=== PATIENT | female | born 1980 | race Caucasian/White ===

== ENCOUNTER → 2017-04-12 | Outpatient (CLI) | payer OTHER ==
--- NOTE | 2017-04-12 14:07 | KCIC ---
THYROID ULTRASOUND History: Hypothyroidism, family history of thyroid cancer Comparison: None. Findings: Multiple sonographic images of the thyroid gland are submitted. Right lobe measured 5.1 x 1.9 x 1.5 cm. Left lobe measured 4.1 x 2 x 1.3 cm. There is heterogeneity of the thyroid parenchyma bilaterally with areas of hypervascularity. Isthmus measures 2.2 cm in thickness. There is a hypoechoic solid nodule of the mid left gland 0.5 x 0.4 x 0.5 cm with internal vascularity on color Doppler imaging. Impression: 1. There is a small solid nodule of the mid left gland up to 0.5 cm. There is other diffuse heterogeneity and hypervascularity of the thyroid gland bilaterally which may be seen with thyroiditis. Electronically signed by: Bobo Licea MD (04/12/2017 2:04 PM) [id number]
== END | disposition home or self-care (01) ==
LOC: KCIC US 13:09
PROVIDERS: ATTEND Obstetrics & Gynecology
DX: E03.9 Hypothyroidism, unspecified (principal)
CPT/HCPCS: 76536